=== PATIENT | female | born 1960 | race Caucasian/White ===

== ENCOUNTER 2017-09-07 01:00 | Emergency (ER) | payer BC ==
[2017-09-07 01:16] VITALS: BP 152/92; PULSE 104; RESP 20; TEMP 97; O2SAT 96
[2017-09-07 01:18] LABS: APPEARANCE,URINE Cloudy; BILIRUBIN,URINE 1+ (NEGATIVE); COLOR,URINE Red; GLUCOSE, URINE (UA) NEGATIVE (NEGATIVE); KETONES,URINE TRACE (NEGATIVE); LEUKOCYTE ESTERASE ,URINE 1+ (NEGATIVE); NITRATE,URINE NEGATIVE (NEGATIVE); OCCULT BLOOD,URINE 3+ (NEG-TRACE); UROBILINOGEN,URINE 0.2 (0.2-1.0 EU)
[2017-09-07 01:30] LABS: ICTOTEST,URINE NEGATIVE (NEGATIVE); RBC,URINE TNTC (0-3AV/HPF); WBC,URINE UNABLE (0-5AV/HPF)
[2017-09-07] MEDS ORDERED: CIPROFLOXACIN HCL 500 MG TAB PO ONE (01:45)
[2017-09-07] MEDS ORDERED: SULFAMETHOXAZOLE/TRIMETHOPRI 800/160 MG PO ONE (01:48)
[2017-09-07] MEDS ORDERED: SULFAMETHOXAZOLE/TRIMETHOPRI 800/160 MG ONE (01:49)
== END 2017-09-07 02:00 | disposition home or self-care (01) ==
LOC: ED 01:00
DX: N30.01 Acute cystitis with hematuria (principal)
CPT/HCPCS: 81001; 87077; 87088; 87186; 99282; A9270-GY

== ENCOUNTER 2017-09-29 09:17 | Day surgery (SDC) | payer BC ==
[~2017-09-29 09:17] MED LIST: LIDOCAINE HCL 1% MPF SOL ONE; PROPOFOL 500 MG/50 ML EMU IV ONE
[2017-09-29 11:18] VITALS: RESP 14; O2SAT 96
[2017-09-29 11:35] VITALS: BP 126/70; PULSE 64; TEMP 97.2
== END 2017-09-29 11:55 | disposition home or self-care (01) ==
LOC: SURG 09:17
PROVIDERS: ATTEND Surgery
DX: Z12.11 Encounter for screening for malignant neoplasm of colon (principal)
CPT/HCPCS: J2001; J2704

== ENCOUNTER 2019-02-08 11:31 | Outpatient (CLI) | payer BC ==
[2017-09-29 11:18] VITALS: O2SAT 96
== END 2019-02-08 11:32 | disposition home or self-care (01) ==
LOC: CONVCARE 11:31
PROVIDERS: ATTEND Orthopaedic Surgery
DX: M75.42 Impingement syndrome of left shoulder (principal); S62.002A Unspecified fracture of navicular [scaphoid] bone of left wrist, initial encounter for closed fracture
CPT/HCPCS: 73110

== ENCOUNTER 2019-03-08 11:34 | Outpatient (CLI) | payer BC | END 2019-03-08 11:35 | disposition home or self-care (01) | LOC: CONVCARE 11:35 ==